=== PATIENT | male | born 1980 | race Caucasian/White ===

== ENCOUNTER 2019-10-31 09:32 | Emergency (ER) | payer SELFPAY ==
[~2019-10-31] VITALS: Ht 160 cm; Wt 66.0 kg
[2019-10-31 10:43] VITALS: BP 126/65
== END 2019-10-31 10:45 | disposition home or self-care (01) | DRG 392 ==
LOC: ED 09:32
DX: R10.84 Generalized abdominal pain (principal); F15.90 Other stimulant use, unspecified, uncomplicated

== ENCOUNTER 2021-11-07 12:01 | Emergency (ER) | payer SELFPAY ==
[~2021-11-07] VITALS: Ht 160 cm; Wt 75.0 kg
[2021-11-07] MEDS ORDERED: MEDDOSEPAK PO (12:22)
[2021-11-07] MEDS ORDERED: PERMETHRIN5 % EX (12:22)
[2021-11-07 12:33] VITALS: BP 108/54
== END 2021-11-07 13:05 | disposition home or self-care (01) | DRG 607 ==
LOC: ED 12:01
DX: B86 Scabies (principal)

== ENCOUNTER 2022-09-21 14:51 | Emergency (ER) | payer SELFPAY ==
[2022-09-21] VITALS (9 sets, daily range): BP systolic 115–140; BP diastolic 75–88
[~2022-09-21] VITALS: Ht 160 cm; Wt 65.8 kg
[~2022-09-21 14:51] MED LIST: MEDDOSEPAK PO; PERMETHRIN5 % EX
[2022-09-21 15:42] LABS: BASO% 0.2 % (0-3); EOS% 1.9 % (0-8); HEMATOCRIT 46.6 % (39.0-50.0); HEMOGLOBIN 15.3 g/dl (14.0-18.0); IMMATURE GRANULOCYTES 0.2 % (0.0-5.0); LYMPH% 9.3 % (15-41); MEAN CORPUSCULAR HGB 29.9 pG CALC (26.0-32.0); MEAN CORPUSCULAR HGB CONC 32.8 g/dL CAL (32.0-36.0); NEUT# 12.28 thou/uL (1.82-7.42); NEUT% 78.4 % (42-76); RED BLOOD COUNT 5.12 mill/uL (4.70-6.10); RED CELL DISTRI WIDTH 12.8 % (11.5-15.5)
[2022-09-21 15:57] LABS: ALKALINE PHOSPHATASE 69 u/l (38-126); ANION GAP 13 (6-22 (CALC)); BUN 13 mg/dL (9-20); BUN/CREATININE RATIO 12 (12-20 (CALC)); CARBON DIOXIDE 21 mmol/l (22-30); CHLORIDE 107 mmol/l (95-108); GFR FOR AFR.AMER. > 60 ML/MIN (>=60 (CALC)); GFR OTHER RACES > 60 ML/MIN (>=60 (CALC)); LIPASE 46 u/l (23-300); POTASSIUM 4.8 mmol/l (3.5-5.1); SGOT/AST 40 u/l (17-59); SODIUM 136 mmol/l (137-146); TOTAL PROTEIN 7.3 g/dL (6.3-8.2)
[2022-09-21 16:02] LABS: BILIRUBIN, TOTAL 0.5 mg/dL (0.2-1.3)
[2022-09-21] MEDS ORDERED: ZOFRAN4 MG/TAB PO (17:57)
[2022-09-21] MEDS ORDERED: TORADOL PO (17:57)
[2022-09-21] MEDS ORDERED: OMNI-PAC300 MG PO (17:57)
[2022-09-21] MEDS ORDERED: TAMSULOSIN0.4 MG PO (17:57)
[2022-09-21 18:05] LABS: URINE BILIRUBIN - DIPSTICK NEGATIVE (NEGATIVE); URINE BLOOD DIPSTICK SMALL (NEGATIVE); URINE COLOR YELLOW; URINE GLUCOSE - DIPSTICK NEGATIVE (NEGATIVE); URINE KETONE NEGATIVE (NEGATIVE); URINE LEUK ESTERASE NEGATIVE (NEGATIVE); URINE NITRITE - DIPSTICK NEGATIVE (Negative); URINE PROTEIN - DIPSTICK NEGATIVE (NEG-TRACE); URINE SPECIFIC GRAVITY >=1.030; URINE UROBILINOGEN - DIPSTICK 0.2 E.U./dL (0.2)
[2022-09-21 18:13] LABS: URINE WBC 0-2 WBC/hpf (0-5)
== END 2022-09-21 18:54 | disposition home or self-care (01) | DRG 694 ==
LOC: ED 14:51
PROVIDERS: Family Medicine
DX: N20.1 Calculus of ureter (principal)

== ENCOUNTER 2023-05-24 18:57 | Emergency (ER) | payer SELFPAY ==
[~2023-05-24] VITALS: Ht 160 cm; Wt 63.5 kg
[2023-05-24] VITALS (15 sets, daily range): BP systolic 100–151; BP diastolic 63–134
[~2023-05-24 18:57] MED LIST changes: +OMNI-PAC300 MG PO; +TAMSULOSIN0.4 MG PO; +TORADOL PO; +ZOFRAN4 MG/TAB PO
[2023-05-24 20:46] LABS: BASO% 0.6 % (0-3); EOS% 2.9 % (0-8); HEMATOCRIT 48.7 % (39.0-50.0); HEMOGLOBIN 16.3 g/dl (14.0-18.0); IMMATURE GRANULOCYTES 0.1 % (0.0-5.0); LYMPH% 23.3 % (15-41); MEAN CELL VOLUME 92.6 fL CALC (80.0-100.0); MEAN CORPUSCULAR HGB CONC 33.5 g/dL CAL (32.0-36.0); NEUT# 6.32 thou/uL (1.82-7.42); NEUT% 64.1 % (42-76); RED BLOOD COUNT 5.26 mill/uL (4.70-6.10); RED CELL DISTRI WIDTH 13.1 % (11.5-15.5)
[2023-05-24 20:47] LABS: URINE BILIRUBIN - DIPSTICK Negative (NEGATIVE); URINE BLOOD DIPSTICK Negative (NEGATIVE); URINE GLUCOSE - DIPSTICK Negative (NEGATIVE); URINE KETONE Negative (NEGATIVE); URINE LEUK ESTERASE Negative (NEGATIVE); URINE NITRITE - DIPSTICK Negative (Negative); URINE PROTEIN - DIPSTICK Negative (NEG-TRACE); URINE SPECIFIC GRAVITY 1.025; URINE UROBILINOGEN - DIPSTICK 0.2 E.U./dL (0.2)
[2023-05-24 20:48] LABS: URINE COLOR Yellow
[2023-05-24 21:20] LABS: ALBUMIN 4.4 g/dL (3.2-5.0); ALKALINE PHOSPHATASE 92 u/l (38-126); ANION GAP 13 (6-22 (CALC)); BILIRUBIN, TOTAL 0.3 mg/dL (0.2-1.3); BUN 14 mg/dL (9-20); BUN/CREATININE RATIO 18 (12-20 (CALC)); CARBON DIOXIDE 25 mmol/l (22-30); CHLORIDE 106 mmol/l (95-108); CREATININE 0.8 mg/dL (0.7-1.3); ETHYL ALCOHOL 0 mg/dl (0-30); GFR FOR AFR.AMER. > 60 ML/MIN (>=60 (CALC)); GFR OTHER RACES > 60 ML/MIN (>=60 (CALC)); MAGNESIUM 1.9 mg/dL (1.6-2.3); POTASSIUM 4.6 mmol/l (3.5-5.1); SGOT/AST 55 u/l (17-59); SODIUM 139 mmol/l (137-146); TOTAL PROTEIN 7.5 g/dL (6.3-8.2)
[2023-05-24] MEDS ORDERED: BENZTROPINE1 MG PO (21:31)
[2023-05-25] MEDS ORDERED: HALDOL5 M1 PO ×2 (02:14→02:15)
[2023-05-25] MEDS ORDERED: ABILIFY10 MG PO (02:15)
== END 2023-05-24 22:45 | disposition home or self-care (01) | DRG 93 ==
LOC: ED 18:57
PROVIDERS: Family Medicine
DX: G24.01 Drug induced subacute dyskinesia (principal); T43.4X5A Adverse effect of butyrophenone and thiothixene neuroleptics, initial encounter; F19.10 Other psychoactive substance abuse, uncomplicated; F99 Mental disorder, not otherwise specified; F07.9 Unspecified personality and behavioral disorder due to known physiological condition; Z72.0 Tobacco use